=== PATIENT | female | born 1985 | race African-American/Black ===

== ENCOUNTER 2016-05-06 18:14 | Emergency (ER) | payer SELFPAY ==
[~2016-05-06 18:14] MED LIST: CYCLOBENZAPRINE10 M1 PO; GLYBURIDE1.25 M1 PO; GLYBURIDE2.5 M2 PO; IBUPROFEN800 M1 PO; PRENATAL FORMU1 EAC1 PO; RANITIDINE HCL150 M3 PO; VITAMIN B PO
[2016-05-06] MEDS ORDERED: NO HOME MEDICATION XX (22:43)
[2016-05-06 23:45] LABS: URINE APPEARANCE HAZY; URINE BILIRUBIN NEGATIVE (NEG); URINE BLOOD LARGE (NEG); URINE COLOR YELLOW; URINE GLUCOSE (UA) NEGATIVE (NEG); URINE KETONE SMALL (NEG); URINE LEUKOCYTE ESTERASE NEGATIVE (NEG); URINE NITRITE NEGATIVE (NEG); URINE PROTEIN NEGATIVE (NEG); URINE SPECIFIC GRAVITY 1.011 (1.003-1.030)
[2016-05-06 23:48] LABS: URINE MUCUS 1+; URINE RBC 20-30 /[HPF] (0-5); URINE WBC RARE /[HPF] (0-5)
[2016-12-21] MEDS ORDERED: PRENATAL-U CAPS1 CAP PO (01:05)
[2016-12-21] MEDS ORDERED: TYLENOL325 M2 PO (01:05)
[2016-12-23] MEDS ORDERED: IBUPROFEN800 M1 PO (10:51)
[2016-12-23] MEDS ORDERED: NORCO 5-325 TA1 EACH PO (10:52)
== END 2016-05-07 02:30 ==
LOC: EDMED 18:14
PROVIDERS: Emergency Medicine
DX: O20.0 Threatened abortion (principal)